=== PATIENT | female | born 1965 | race Caucasian/White ===

== ENCOUNTER 2019-03-13 11:58 | Day surgery (SDC) | payer BC ==
[2019-03-13] MEDS ORDERED: PROPOFOL 10 MG/ML VIAL IV ONE (11:59)
[2019-03-13] MEDS ORDERED: LIDOCAINE 2% MDV (20MG/ML) 20ML VIAL IV ONE (11:59)
[2019-03-13] MEDS ORDERED: FENTANYL PF 100MCG/2ML VIAL IV ONE (11:59)
[2019-03-13] MEDS ORDERED: KETOROLAC 30 MG/ML VIAL IVP ONE (11:59)
--- NOTE | 2019-03-14 06:02 | Operative Note ---
OPERATION: COLONOSCOPY to the cecum. INDICATION: Colorectal cancer screening. The patient's last examination was in 2006, at which time very mild sigmoid diverticulosis was noted. She returns at this time for screening purposes. There is a family history of polyps in both her mother and father. ANESTHESIA: Intravenous sedation was administered by the department of anesthesiology and included Diprivan titrated to effect. PROCEDURE: Following informed consent from this alert individual including a discussion of the risks and benefits of the procedure and an opportunity for the patient to ask questions, the patient was in the left lateral decubitus position. A digital rectal examination was performed. No abnormalities were noted. Following this, the Olympus CMH014 video colonoscope was inserted into the rectum without resistance. The rectal mucosa had a normal appearance with normal folds and distensibility. The sigmoid colon was cannulated and found to be unremarkable as well. The colonoscope was farther advanced up through the colon to the level of the cecum without much difficulty. Throughout the bowel the mucosa appeared normal, the folds were normal, and the bowel was fairly well distensible. The cecum was well defined by noting the appendiceal orifice and ileocecal valve. Overall, the colon preparation was good. From the base of the cecum, the colonoscope was slowly withdrawn. No abnormalities were noted. Retroflexion in the rectum was endoscopically unremarkable. The instrument was straightened and removed. The patient tolerated the procedure well and was returned to the recovery area in stable condition. IMPRESSION: Unremarkable colonoscopy to the cecum. RECOMMENDATIONS: I will discuss the patient's family history of colon polyps further and if both parents had abnormal polyps, then 5-year checkup would be reasonable. She will otherwise follow up with Dr. Smith. As always, thank you for allowing me to participate in the care of your patient. ANISA
== END 2019-03-13 14:30 | disposition home or self-care (01) ==
LOC: HOP 11:58
PROVIDERS: ATTEND Internal Medicine Gastroenterology
DX: Z12.11 Encounter for screening for malignant neoplasm of colon (principal); Z83.71 Family history of colonic polyps; I10 Essential (primary) hypertension
CPT/HCPCS: J1885